=== PATIENT | male | born 1980 | race Caucasian/White ===

== ENCOUNTER 2016-07-02 08:20 | Emergency (ER) | payer OTHER ==
[2016-07-02 08:37] VITALS: O2SAT 96
[2016-07-02] MEDS ORDERED: TORAdol 30 mg Injection IM ONE (08:44)
--- NOTE | 2016-07-02 08:57 | ERPHSYRPT ---
- History of Present Illness Time Seen by Provider: 07/02/16 08:35 Source: patient Exam Limitations: clinical condition Patient Subjective Stated Complaint: pt co pain lower back since wednesday, pt was caught between boat and trailer on , has not been able to work since, has pain radiating down legs Triage Nursing Assessment: pt alert ,resp easy, skinw/d. has tried aleve at home , has contusion to uppper inner left thigh Physician History: PATIENT WITH HISTORY OF CHRONIC LOW BACK PAIN STATES HIS LEFT LOWER LEG TRAPPED BETWEEN TRAILOR AND BOAT 2 DAYS AGO, HAS INCREASED PAIN LEFT MID THIGH AND RICARDO. DENIES HEAD, NECK OR BACK INJURY. DENIES BRUISING OR SWELLING. Method of Injury: direct blow Occurred: days ago Quality: constant Severity of Pain-Max: severe Severity of Pain-Current: severe Lower Extremities Pain: leg: left, knee: left, thigh: left Modifying Factors: Improves With: movement Associated Symptoms: unable to bear weight Allergies/Adverse Reactions: No Known Drug Allergies Allergy (Verified 07/02/16 08:38) Hx Tetanus, Diphtheria Vaccination/Date Given: Yes Hx Influenza Vaccination/Date Given: Yes Hx Pneumococcal Vaccination/Date Given: No Immunizations Up to Date: Yes - Review of Systems Constitutional: No Fever, No Chills Eyes: No Symptoms Ears, Nose, & Throat: No Symptoms Respiratory: No Cough, No Dyspnea Cardiac: No Chest Pain, No Edema, No Syncope Abdominal/Gastrointestinal: No Abdominal Pain, No Nausea, No Vomiting, No Diarrhea Genitourinary Symptoms: No Dysuria Musculoskeletal: Injury, Joint Pain, Joint Swelling, No Back Pain, No Neck Pain Skin: No Rash Neurological: No Dizziness, No Focal Weakness, No Sensory Changes Psychological: No Symptoms Endocrine: No Symptoms All Other Systems: Reviewed and Negative - Past Medical History Pertinent Past Medical History: Yes Musculoskeletal History: Other History: Other Other Medical History: KIDNEY STONES,back pain - Past Surgical History Past Surgical History: No - Social History Smoking Status: Current every day smoker How long have you smoked: 10 Exposure to second hand smoke: Yes Drug Use: none Patient Lives Alone: No - Nursing Vital Signs Nursing Vital Signs: Initial Vital Signs Temperature 98.3 F Temperature Source Oral Pulse Rate 116 Respiratory Rate 16 Blood Pressure [] 136/74 Pain Intensity 4 - Physical Exam General Appearance: alert Neck Exam: supple Cardiovascular/Respiratory Exam: chest non-tender, normal breath sounds, regular rate/rhythm, no respiratory distress Gastrointestinal/Abdominal Exam: non-tender, soft, guarding Back Exam: normal inspection, No vertebral tenderness Hips Exam: bilateral: normal range of motion, other (PASSIVE RANGE OF MOTION WITHOUT HIP PAIN) Legs Exam: left leg: pain (MEDIAL ASPECT OF MID LEFT THIGH NO ECCHYMOSIS), soft tissue tenderness, bilateral leg: other (THERE IS BILATERAL VENOUS STATES CHANGES MID TO LOWER RICARDO BROWNISH DISCOLORATION, ON THE LEFT ERYTHEMA WITH WARMTH) Knees Exam: left knee: other (LIMITED RANGE OF MOTION, PATELLA MIDLINE, NO JOINT LAXITY UPON VARUS/VALGUS STRESS, NEGATIVE ANTERIOR DRAW SIGN) Ankle Exam: left ankle: other (LEFT PEDIS PULSE 2+), bilateral ankle: non-tender , normal inspection Neuro/Tendon Exam: normal sensation, normal motor functions Mental Status Exam: alert, oriented x 3, cooperative Skin Exam: normal color, warm, dry SpO2: 96 Oxygen Delivery: Room Air - Radiology Exams Pelvis X-ray Interpretation: Discussed w/ radiologist, Negative, No Fracture Left Femur X-ray Interpretation: Discussed w/ radiologist, No Fracture Left Lower Leg X-ray Interpretation: Discussed w/ radiologist, No Fracture - Radiology Ultrasound Exam Left Venous Lower Extremity Ultrasound: discussed w/radiologist (NO EVIDENCE OF DVT) Ordered Tests: Active Orders 24 hr Category Date Time Status Crutches STAT Care 07/02/16 09:16 Active FEMUR Stat Exams 07/02/16 08:43 Completed KNEE (1 OR 2 VIEW) Stat Exams 07/02/16 08:44 Completed LOWER LEG Stat Exams 07/02/16 08:43 Completed PELVIS (1 OR 2 VIEWS) Stat Exams 07/02/16 08:42 Completed VENOUS UNILAT/LIMITED EXTREMIT [US] Stat Exams 07/02/16 10:37 Ordered UA Stat Lab 07/02/16 08:42 Ordered Urine Triage Profile Stat Lab 07/02/16 08:42 Ordered Medication Summary Discontinued Medications Generic Name Dose Route Start Last Admin Trade Name Freq PRN Reason Stop Dose Admin Hydromorphone HCl 2 mg 07/02/16 09:29 07/02/16 09:51 Dilaudid 2 Mg Injection IM 07/02/16 09:30 2 mg STAT STA Administration Hydromorphone HCl Confirm 07/02/16 09:49 Hydromorphone 1 Mg/Ml Ampule Administered 07/02/16 09:50 Dose 2 mg .ROUTE .STK-MED ONE Ketorolac Tromethamine 60 mg 07/02/16 08:44 07/02/16 09:02 Toradol 30 Mg Injection IM 07/02/16 08:45 60 mg STAT ONE Administration Ketorolac Tromethamine Confirm 07/02/16 09:01 Toradol 30 Mg Injection Administered 07/02/16 09:02 Dose 60 mg .ROUTE .STK-MED ONE Promethazine HCl 25 mg 07/02/16 09:29 07/02/16 09:51 Phenergan 25 Mg Inj IM 07/02/16 09:30 25 mg STAT ONE Administration Promethazine HCl Confirm 07/02/16 09:49 Phenergan 25 Mg Inj Administered 07/02/16 09:50 Dose 25 mg .ROUTE .STK-MED ONE - Progress Progress: improved Progress Note: 07/02/16 10:29 PATIENT GIVEN TORADOL 60MG IM, DILAUDID 2MG/PHENERGAN 25MG IM 07/02/16 10:30-PATIENT FITTED FOR CRUTCHES Counseled pt/family regarding: diagnosis, need for follow-up, rad results - Departure Time of Disposition: 11:03 Departure Disposition: Home Clinical Impression: SOFT TISSUE INJURIES LEFT THIGH/RICARDO, CONTUSION/STRAIN LEFT KNEE, CELLULITIS LEFT LEG Condition: Stable Critical Care Time: No Referrals: DOCTOR,NO FAMILY [Primary Care Provider] - Additional Instructions: AMBULATE USING CRUTCHES, NONWEIGHT BEARING LEFT LEG FOR 1 WEEK. ANTIBIOTIC AUGMENTIN 875MG TWICE DAILY FOR 10 DAYS. WATCH FOR SIGNS OF INFECTION, REDNESS, SWELLING OR DRAINAGE. NORCO 10/325 EVERY 4 HOURS FOR PAIN NEEDED. FOLLOWUP WITH FAMILY PHYSICIAN IN 1 WEEK. Prescriptions: Hydrocodone/APAP 10/325 mg [[place] 10/325 MG Tablet] 1 tab PO Q4H PRN PRN # 20 tablet PRN Reason: Pain Amox Tr/Potass Clav. 875 mg [Augmentin 875-125 Tablet] 875 mg PO BID #20 tablet
[2016-07-02] MEDS ORDERED: TORAdol 30 mg Injection ONE (09:01)
[2016-07-02] MEDS ORDERED: DILAUDID 2 MG INJECTION IM STA (09:29)
[2016-07-02] MEDS ORDERED: Phenergan 25 MG INJ IM ONE (09:29)
[2016-07-02] MEDS ORDERED: Hydromorphone 1 mg/ml Ampule ONE (09:49)
[2016-07-02] MEDS ORDERED: Phenergan 25 MG INJ ONE (09:49)
--- NOTE | 2016-07-02 10:17 | XRAY ---
Indication: Pain following injury. Comparison: None AP pelvis demonstrates right intertrochanteric bone cyst and left pelvic phlebolith. No other bony, articular, or soft tissue abnormalities.
--- NOTE | 2016-07-02 10:17 | XRAY ---
Indication: Pain following injury. Comparison: None 2 views of the left femur obtained. No bony, articular, or soft tissue abnormalities.
--- NOTE | 2016-07-02 10:17 | XRAY ---
Indication: Pain following injury. Comparison: None 2 views of the left lower leg obtained. No bony, articular, or soft tissue abnormalities.
--- NOTE | 2016-07-02 10:20 | XRAY ---
Indication: Pain following injury. Comparison: None 2 views of the left knee obtained. No bony, articular, or soft tissue abnormalities.
[2016-07-02 11:15] VITALS: BP 121/59; PULSE 78
--- NOTE | 2016-07-02 11:21 | XRAY ---
Indication: Pain following injury. Two-dimensional sonogram and color Doppler imaging of the major venous vessels of the left leg was performed. Comparison: None No thrombus seen in the examined deep venous vessels of the left leg including greater saphenous vein. Veins demonstrate normal compressibility. Venous waveforms are normal with and without augmentation. Incidental small benign appearing inguinal lymph nodes. Impression: Left leg negative for DVT.
== END 2016-07-02 11:15 | disposition home or self-care (01) ==
LOC: ED 08:20
DX: S79.922A Unspecified injury of left thigh, initial encounter (principal); S89.92XA Unspecified injury of left lower leg, initial encounter; S80.02XA Contusion of left knee, initial encounter; L03.116 Cellulitis of left lower limb; M54.5 Low back pain; W23.0XXA Caught, crushed, jammed, or pinched between moving objects, initial encounter
CPT/HCPCS: 72170; 73552; 73560; 73590; 93971; 96372; 99284; J1170; J1885; J2550

== ENCOUNTER 2016-07-06 11:43 | Observation (INO) | payer OTHER ==
[2016-07-06 12:31] LABS: Mean Cell Volume 86.9 fl (78-100); Mean Corpuscular Hemoglobin 30.3 pg (26-32); Mean Platelet Volume 9.9 fl (6-9.5); Platelet Count 248 K/mm3 (150-450); Red Blood Count 4.82 M/mm3 (4.1-5.6); Red Cell Distribution Width 12.5 % (11.5-14.0); White Blood Count 15.2 K/mm3 (4.0-10.5)
[2016-07-06] MEDS: ENOXAPARIN SODIUM SQ SCH (12:55)
[2016-07-06] MEDS: Sodium Chloride 0.9% 1000 ML 1,000 ML IV SCH (12:55)
[2016-07-06] MEDS: DILAUDID 2 MG INJECTION IV PRN ×3 (12:58→21:13)
[2016-07-06] MEDS ORDERED: VANCOCIN 1 GM VIAL*** 2 GM in Sodium Chloride 0.9% 500 ML 500 ML IV ONE (13:00)
[2016-07-06 13:12] LABS: ALKALINE PHOSPHATASE 114 U/L (46-116); BILIRUBIN,TOTAL 0.4 mg/dL (0.2-1.0); BLOOD UREA NITROGEN 16 mg/dL (9-20); CHLORIDE 101 mEq/L (98-107); Carbon Dioxide 30.9 mEq/L (21-32); Glucose 97 MG/DL (70-110); Potassium 3.9 mEq/L (3.5-5.1); SGOT/AST 18 U/L (15-37); SGPT/ALT 34 U/L (12-78); SODIUM 140 mEq/L (136-145); Total Protein 7.5 gm/dL (6.4-8.2)
[2016-07-06 14:06] LABS: BAND 6 % (0.0-2.0); Total Cells Counted 100
[2016-07-06 14:07] LABS: Platelet Estimate NORMAL (NORMAL)
[2016-07-06 14:09] LABS: Toxic Granulation 2+
[2016-07-06 14:11] LABS: Polychromasia 1+
[2016-07-06] MEDS: Nicoderm CQ 21 MG TOP SCH (18:19)
--- NOTE | 2016-07-06 20:30 | XRAY ---
Exam: Duplex Doppler venous ultrasound examination of the left lower extremity from 07/06/2016. Comparison: Duplex Doppler venous ultrasound examination of the left lower extremity from 07/02/2016. Indication: Cellulitis, left leg pain. Findings: Doppler examination of the left lower extremity was carried out in the usual manner. Normal transducer compression, Doppler signal with Doppler augmentation, and color flow were seen within front office representative segments of the left common femoral vein, superficial femoral vein, popliteal vein, and distal posterior tibial veins. There was also normal compression, color flow, and Doppler signal within the greater saphenous vein within the proximal left thigh and normal color flow and Doppler signal with augmentation within the profunda femoral vein. One or two superficial lymph nodes measuring under 1 cm in diameter are seen anterior to the proximal left superficial femoral vein. There appears to be some subcutaneous edema within the distal left lower leg. Impression: 1. No Doppler or sonographic evidence of deep venous thrombosis is seen within the left lower extremity. This is unchanged from 07/02/2016. 2. There appears to be some subcutaneous edema within the distal left lower leg. One or two small superficial lymph nodes are seen anterior to the proximal left superficial femoral vein as well.
[2016-07-06] MEDS: VANCOCIN 1 GM VIAL*** 1.25 GM in Sodium Chloride 0.9% 250 ML 250 ML IV SCH (21:17)
[2016-07-07] MEDS: DILAUDID 2 MG INJECTION IV PRN ×8 (02:15→21:06)
[2016-07-07] MEDS: VANCOCIN 1 GM VIAL*** 1.25 GM in Sodium Chloride 0.9% 250 ML 250 ML IV SCH ×3 (05:31→21:02)
--- NOTE | 2016-07-07 09:40 | PCM.NOTE ---
Date and Time: 07/07/16 0939 Subjective Assessment: patient reports numbness in leg has resolved, dramatic improvement in redness, swelling and pain. he is quite pleased Objective Exam General Appearance: no apparent distress, alert Respiratory Exam: normal breath sounds, lungs clear, No respiratory distress Cardiovascular Exam: regular rate/rhythm, normal heart sounds Gastrointestinal/Abdomen Exam: soft, No tenderness, No mass Extremity Exam: other (left lower leg with improving erythema, warmth to touch, lymphangitic spread to medial upper thigh improving. much less tender to palpation) OBJECTIVE DATA Vital Signs: Vital Signs - 24 hr Temp Pulse Resp BP Pulse Ox 07/07/16 07:24 97.5 F 85 20 134/79 96 07/07/16 04:00 97.4 F 86 19 118/73 95 07/07/16 00:00 97.7 F 89 19 121/70 96 07/06/16 19:30 97.5 F 92 H 19 126/73 96 07/06/16 16:00 98.0 F 87 18 136/78 97 07/06/16 11:58 98.6 F 93 H 125/75 07/06/16 11:43 98.6 F 93 H 18 125/75 97 Pain Assessment - Last Documented Pain Intensity 9 Pain Scale Used 0-10 Pain Scale Intake and Output: Intake & Output 07/04/16 07/05/16 07/06/16 07/07/16 11:59 11:59 11:59 11:59 Intake Total 1561 Balance 1561 Weight 110.631 kg Lab Results: Lab Results-Last 24 Hours 07/06/16 07/06/16 Range/Units 12:14 12:14 WBC 15.2 H (4.0-10.5) K/mm3 RBC 4.82 (4.1-5.6) M/mm3 Hgb 14.6 (12.5-18.0) gm/dl Hct 41.9 L (42-50) % MCV 86.9 (78-100) fl MCH 30.3 (26-32) pg MCHC 34.8 (32-36) g/dl RDW 12.5 (11.5-14.0) % Plt Count 248 (150-450) K/mm3 MPV 9.9 H (6-9.5) fl Segmented Neutrophils 84 H (36.-66.) % Band Neutrophils 6 H (0.0-2.0) % Lymphocytes (Manual) 6 L (24-44) % Monocytes (Manual) 4 (0.0-12.0) % Differential Comment NORMAL Toxic Granulation 2+ Platelet Estimate NORMAL (NORMAL) Polychromasia 1+ Sodium 140 (136-145) mEq/L Potassium 3.9 (3.5-5.1) mEq/L Chloride 101 (98-107) mEq/L Carbon Dioxide 30.9 (21-32) mEq/L Anion Gap 12.0 (5-15) MEQ/L BUN 16 (9-20) mg/dL Creatinine 0.98 (0.55-1.30) mg/dl Estimated GFR > 60 ML/MIN Glucose 97 (70-110) MG/DL Calcium 9.3 (8.5-10.1) mg/dL Total Bilirubin 0.4 (0.2-1.0) mg/dL AST 18 (15-37) U/L ALT 34 (12-78) U/L Alkaline Phosphatase 114 (46-116) U/L Serum Total Protein 7.5 (6.4-8.2) gm/dL Albumin 3.0 L (3.4-5.0) g/dL Radiology Exams: Radiology Procedures Category Date Time Status VENOUS UNILAT/LIMITED EXTREMIT [US] Routine Exams 07/06/16 12:30 Completed Assessment/Plan (1) Cellulitis of left leg Current Visit: Yes Status: Acute Assessment & Plan: continue vanc, dramatic improvement. failed outpatient therapy with augmentin from ER. Code(s): L03.116 - CELLULITIS OF LEFT LOWER LIMB
[2016-07-07] MEDS: ENOXAPARIN SODIUM SQ SCH (09:45)
[2016-07-07] MEDS: Zofran 4 MG/2 ML VIAL IV PRN ×2 (09:51→14:27)
[2016-07-07] MEDS: Sodium Chloride 0.9% 1000 ML 1,000 ML IV SCH (17:16)
[2016-07-07] MEDS: Nicoderm CQ 21 MG TOP SCH (18:20)
[2016-07-08] MEDS: DILAUDID 2 MG INJECTION IV PRN ×2 (03:58→08:33)
[2016-07-08] MEDS: VANCOCIN 1 GM VIAL*** 1.25 GM in Sodium Chloride 0.9% 250 ML 250 ML IV SCH (05:35)
[2016-07-08 07:19] VITALS: BP 141/80; PULSE 76; O2SAT 100
[2016-07-08] MEDS: ENOXAPARIN SODIUM SQ SCH (08:33)
[2016-07-08] MEDS: Zofran 4 MG/2 ML VIAL IV PRN (08:33)
--- NOTE | 2016-07-08 08:58 | PCM.DS ---
Discharge Summary Date of Admission: 07/06/16 11:43 Admitting Physician: YAHIR JESUS Primary Care Provider: AMY MARTINEZ Allergies Allergies No Known Drug Allergies Allergy (Verified 07/06/16 12:04) Hospital Summary - Hospital Course Hospital Course: patient was admitted with cellulitis left leg, had negative doppler. had lymphangitic spread to medial upper thigh. has improved dramatically since admission and is ready to discharge, will need to continue IV vanc as he had failed po outpatient augmentin prior to admission - Vitals & Intake/Output Vital Signs: Vital Signs Temperature 97.8 F 07/08/16 07:18 Pulse Rate 76 07/08/16 07:18 Respiratory Rate 20 07/08/16 07:18 Blood Pressure 141/80 07/08/16 07:18 O2 Sat by Pulse Oximetry 100 07/08/16 07:18 Intake & Output: Intake & Output 07/05/16 07/06/16 07/07/16 07/08/16 11:59 11:59 11:59 11:59 Intake Total 1561 2145 Balance 1561 2145 Weight 110.631 kg - Lab Result Diagrams: 07/06/16 12:14 07/06/16 12:14 Lab Results-Last 24 Hrs: Lab Results-Last 24 Hours 07/08/16 Range/Units 05:25 Vancomycin Trough 11.9 (10-20) UG/ML Micro Results-Entire Visit: Microbiology 07/06/16 13:20 Blood Culture - Preliminary Blood NO GROWTH TO DATE 07/06/16 12:14 Blood Culture - Preliminary Blood NO GROWTH TO DATE - Radiology Exams Ordered Rad Exams-Entire Visit: Radiology Procedures Category Date Time Status VENOUS UNILAT/LIMITED EXTREMIT [US] Routine Exams 07/06/16 12:30 Completed - Procedures and Test Procedures and Tests throughout Hospitalization: Therapy Orders & Screens 07/06/16 12:26 OT Screen per Nursing Assess Comment: Protocol Order Physician Instructions: Greater than 3 points order OT Admission Screening Reason For Exam: Triggered on Admission Diagnosis: Cellulitis left leg Open Wound/Cellutlitis/Pressure Ulcers: Yes Acute Fx/ORIF/Change in wt bearing status: No Severe MUSCULOSKELETAL pain: No ADL Dysfunction: No Acute CVA w/Hemiparesis/Hemiplegia: No Decreased Functional Mobility/Strength: No Sprain/Strain: No Acute Post-op Mobility Dysfunction: No Total Points: 5 PT Screen per Nursing Assess ONCE Comment: Protocol Order Physician Instructions: Greater than 3 points order PT Admission Screenin Reason For Exam: Triggered on Admission Diagnosis: Cellulitis left leg Open Wound/Cellutlitis/Pressure Ulcers: Yes Acute Fx/ORIF/Change in wt bearing status: No Severe MUSCULOSKELETAL pain: No ADL Dysfunction: No Acute CVA w/Hemiparesis/Hemiplegia: No Decreased Functional Mobility/Strength: No Sprain/Strain: No Acute Post-op Mobility Dysfunction: No Total Points: 5 Discharge Exam General Appearance: no apparent distress, alert Respiratory Exam: normal breath sounds, lungs clear, No respiratory distress Cardiovascular Exam: regular rate/rhythm, normal heart sounds Gastrointestinal/Abdomen Exam: soft, No tenderness, No mass Extremity Exam: other (left lower leg with erythema and mild warmth, firmness to medial left upper thigh and induration. no fluctuance) Final Diagnosis/Problem List - Final Discharge Diagnosis/Problem (1) Cellulitis of left leg Current Visit: Yes Status: Acute Assessment & Plan: has improved dramatically on IV vanc, patient is willing to come get infusions as outpatient through Wednesday then to see me in the office - Discharge Disposition: Home, Self-Care Condition: Stable Prescriptions: Continue Hydrocodone/APAP 10/325 mg [[place] 10/325 MG Tablet] 1 tab PO Q4H PRN PRN #20 tablet PRN Reason: Pain Discontinued Amox Tr/Potass Clav. 875 mg [Augmentin 875-125 Tablet] 875 mg PO BID # 20 tablet Additional Instructions: pharmacy to dose IV vanc through 07/13/16, patient to followup with me on that day to decide if any further tx required. Follow up with: YAHIR JESUS MD [ACTIVE STAFF] - 07/13/16 10:45 am
== END 2016-07-08 10:15 | disposition home or self-care (01) ==
LOC: MED SURG 11:43
PROVIDERS: ADMIT Family Medicine; ATTEND Family Medicine
DX: L03.116 Cellulitis of left lower limb (principal); M79.662 Pain in left lower leg
CPT/HCPCS: 36415; 80053; 80202; 85025; 87040; 93971; G0378; J1170; J1650; J2405; J3370; A9270-GY

== ENCOUNTER 2022-06-09 19:37 | Observation (INO) | payer BC, MEDICAID ==
[2022-06-09 19:58] LABS: Absolute Neutrophil Ct (ANC) 4.41 x10^3/uL (1.4-6.9); BASOPHIL % 0.6 % (0.0-0.4); Basophil (Absolute #) 0.05 x10^3/uL (0-0.4); Eosinophil (Absolute #) 0.08 x10^3/uL (0-0.5); Hematocrit 46.1 % (42-50); Hemoglobin 16.1 g/dL (12.5-18.0); IMMATURE GRAN # 0.05 x10^3u/L (0.00-0.03); IMMATURE GRAN % 0.6 % (0.00-0.4); Lymphocyte (Absolute #) 2.85 x10^3/uL (1.0-4.6); Lymphocytes % 35.1 % (24.0-44.0); Mean Corpuscular Hemoglobin 30.7 pg (26-32); Mean Corpuscular Hgb Concent. 34.9 g/dL (32-36); Mean Platelet Volume 9.6 fL (7.5-11.0); Monocyte (Absolute #) 0.67 x10^3/uL (0.0-1.3); Monocytes % 8.3 % (0.0-12.0); Neutrophil % 54.4 % (36.0-66.0); Platelet Count 225 x10^3/uL (150-450); Red Blood Count 5.24 x10^6/uL (4.1-5.6); Red Cell Distribution Width 12.5 % (11.5-14.0); White Blood Count 8.1 x10^3/uL (4.0-10.5)
[2022-06-09 20:18] LABS: ALBUMIN 5.1 g/dL (3.5-5.0); ALKALINE PHOSPHATASE 102 U/L (38-126); ANION GAP 18.9 MEQ/L (5-15); BLOOD UREA NITROGEN 20 mg/dL (9-20); CHLORIDE 105 mmol/L (98-107); Calcium 10.2 mg/dL (8.4-10.2); Carbon Dioxide 26 mmol/L (22-30); EST GLOMERULAR FILTRATION RATE > 60.0 ML/MIN; Glucose 90 mg/dL (74-106); Potassium 3.5 mmol/L (3.5-5.1); SGOT/AST 47 U/L (17-59); SGPT/ALT 81 U/L (0-50); SODIUM 146 mmol/L (137-145); Total Protein 8.2 g/dL (6.3-8.2)
[2022-06-09 21:28] LABS: Appearance Clear (Clear); Bacteria None Seen /HPF (None Seen); Bilirubin Negative (Negative); Blood Negative (Negative); Epithelial Cells None Seen /HPF (None Seen); Glucose, Urine Negative (Negative); Hyaline Casts NONE SEEN /LPF (0-2); Ketones Negative (Negative); Leukocyte Esterase Negative (Negative); Nitrite Negative (Negative); Protein,Urine Dip Negative (Negative); RBC 0-2 /HPF (0-5); Specific Gravity 1.025 (1.005-1.030); WBC 0-2 /HPF (0-5)
[2022-06-09 21:34] LABS: ADD URINE CULTURE? NO (NO)
--- NOTE | 2022-06-09 22:38 | ERPHSYRPT ---
- History of Present Illness Time Seen by Provider: 06/09/22 19:41 Source: patient Exam Limitations: no limitations Patient Subjective Stated Complaint: Pt reports "approximately 20 minutes ago my left side of my face stopped working (1919)." Triage Nursing Assessment: Pt alert and oriented x3. No apparent respiratory distress. Ambulated with slow steady cot to wheelchair in lobby. Diaphoretic/skin warm/face flushed. Left sided facial droop, reported numbness by pt. Strong restaurant culinary manager right hand, weak restaurant culinary manager left hand. Decreased sensation left hand and left leg. Decreased ROM left upper and lower extremity. Physician History: Patient is a 41-year-old male presents to our ED for evaluation of acute onset left-sided facial weakness left upper and lower extremity weakness accompanied by decreased sensation. Symptoms started approximately 20 minutes prior to arrival. Patient complains of a slight headache. No obvious expressive aphasia. We are concerned for possible stroke. Patient denies a history of the same. Symptoms are moderate severity. No specific worsening or improving factors. Patient voices no other complaints or concerns at this time. Portions of this note were created with voice recognition technology. There may be grammatical, spelling, punctuation or sound alike errors Timing/Duration: today Severity: moderate Modifying Factors: Improves With: nothing Associated Symptoms: denies symptoms Allergies/Adverse Reactions: No Known Drug Allergies Allergy (Verified 06/09/22 19:39) Home Medications: Diclofenac Sodium 1 tab PO BID 06/09/22 [History] Hx Tetanus, Diphtheria Vaccination/Date Given: Yes Hx Influenza Vaccination/Date Given: No Hx Pneumococcal Vaccination/Date Given: No Travel Risk - International Travel Have you traveled outside of the country in past 3 weeks: No - Coronavirus Screening Are you exhibiting any of the following symptoms?: No Close contact with a COVID-19 positive Pt in past 14-21 Days: No - Vaccine Status Have you recieved a Covid-19 vaccination: No - Review of Systems Constitutional: No Symptoms, No Fever, No Chills Eyes: No Symptoms Ears, Nose, & Throat: No Symptoms Respiratory: No Symptoms, No Cough, No Dyspnea Cardiac: No Symptoms, No Chest Pain, No Edema, No Syncope Abdominal/Gastrointestinal: No Symptoms, No Abdominal Pain, No Nausea, No Vomiting, No Diarrhea Genitourinary Symptoms: No Symptoms, No Dysuria Musculoskeletal: No Symptoms, No Back Pain, No Neck Pain Skin: No Symptoms, No Rash Neurological: No Symptoms, No Dizziness, No Focal Weakness, No Sensory Changes Psychological: No Symptoms Endocrine: No Symptoms Hematologic/Lymphatic: No Symptoms Immunological/Allergic: No Symptoms All Other Systems: Reviewed and Negative - Past Medical History Pertinent Past Medical History: Yes Neurological History: No Pertinent History ENT History: No Pertinent History Cardiac History: Hypertension Respiratory History: No Pertinent History Endocrine Medical History: No Pertinent History Musculoskeletal History: Other GI Medical History: No Pertinent History History: Other Psycho-Social History: No Pertinent History Male Reproductive Disorders: No Pertinent History Other Medical History: KIDNEY STONES, chronic back pain, RA, cellulitis L leg - Past Surgical History Past Surgical History: No Neuro Surgical History: No Pertinent History Cardiac: No Pertinent History Respiratory: No Pertinent History Gastrointestinal: No Pertinent History Genitourinary: No Pertinent History Musculoskeletal: No Pertinent History Male Surgical History: No Pertinent History - Social History Smoking Status: Former smoker How long have you smoked: 15yrs Exposure to second hand smoke: No Drug Use: marijuana Patient Lives Alone: No - Nursing Vital Signs Nursing Vital Signs: Initial Vital Signs Temperature 98.4 F 06/09/22 19:40 Pulse Rate 97 H 06/09/22 19:40 Respiratory Rate 12 06/09/22 19:40 Blood Pressure 154/106 06/09/22 19:40 O2 Sat by Pulse Oximetry 97 06/09/22 19:40 Pain Scale Pain Intensity 3 - Physical Exam General Appearance: no apparent distress, alert Eye Exam: PERRL/EOMI, eyes nml inspection Ears, Nose, Throat Exam: normal ENT inspection, TMs normal, pharynx normal, moist mucous membranes Neck Exam: normal inspection, non-tender, supple, full range of motion Respiratory Exam: normal breath sounds, lungs clear, airway intact, No respiratory distress Cardiovascular Exam: regular rate/rhythm, normal heart sounds, normal peripheral pulses Gastrointestinal/Abdomen Exam: soft, normal bowel sounds, No tenderness, No mass Back Exam: normal inspection, normal range of motion, No CVA tenderness, No vertebral tenderness Extremity Exam: normal inspection, normal range of motion, pelvis stable Neurologic Exam: alert, oriented x 3, cooperative, normal mood/affect, sensation nml, motor deficits, other (Weakness of left upper lower extremity. Left-sided facial droop.) Skin Exam: normal color, warm, dry, No rash Lymphatic Exam: No adenopathy SpO2 Interpretation: normal SpO2: 97 O2 Delivery: Room Air - Course Nursing assessment & vital signs reviewed: Yes EKG Interpreted by Me: RATE (95), Sinus Rhythm, NORMAL AXIS, NORMAL INTERVALS - CT Exams Soft Tissue Neck CT Interpretation: Tele-radiologist Report (No comps normal CTA neck) Head CT Interpretation: Tele-radiologist Report (No comps normal CTA head) Other CT Interpretation: Tele-radiologist Report (Pansinusitis normal head CT scan) Ordered Tests: Active Orders 24 hr Category Date Time Status Perch Mender STAT Care 06/09/22 19:39 Active EKG-ER Only STAT Care 06/09/22 19:38 Active IV Insertion STAT Care 06/09/22 19:38 Active Pulse Oximetry (ED) STAT Care 06/09/22 19:[address] ANGIOGRAPHY NECK [CT] Stat Exams 06/09/22 20:21 Taken CTA HEAD W AND/OR WO CONTRAST [CT] Stat Exams 06/09/22 20:20 Taken HEAD WITHOUT CONTRAST [CT] Stat Exams 06/09/22 19:37 Taken CBC W DIFF Stat Lab 06/09/22 19:56 Completed CMP Stat Lab 06/09/22 19:56 Completed TROPONIN Q4H Lab 06/09/22 19:56 Completed TROPONIN Q4H Lab 06/09/22 23:15 Completed TROPONIN Q4H Lab 06/10/22 03:45 Ordered UA W/RFX UR CULTURE Stat Lab 06/09/22 21:16 Completed Medication Summary Generic Name Dose Route Start Last Admin Trade Name Freq PRN Reason Stop Dose Admin Sodium Chloride 1,000 mls @ 75 mls/hr 06/09/22 23:15 06/10/22 00:40 Sodium Chloride 0.9% 1000 Ml IV 07/09/22 23:14 75 mls/hr .[id number] LIZZY Administration Discontinued Medications Generic Name Dose Route Start Last Admin Trade Name Freq PRN Reason Stop Dose Admin Aspirin 324 mg 06/09/22 23:06 06/10/22 00:40 Aspirin 81 Mg Tab.Chew PO 06/09/22 23:07 324 mg STAT ONE Administration Aspirin Confirm 06/10/22 00:38 Aspirin 81 Mg Tab.Chew Administered 06/10/22 00:39 Dose 324 mg .ROUTE .STK-MED ONE Lab/Rad Data: Laboratory Result Diagrams 06/09/22 19:56 06/09/22 19:56 Laboratory Results 06/09/22 06/09/22 06/09/22 Range/Units 23:15 23:15 21:16 WBC (4.0-10.5) x10^3/uL RBC (4.1-5.6) x10^6/uL Hgb (12.5-18.0) g/dL Hct (42-50) % MCV (78-100) fL MCH (26-32) pg MCHC (32-36) g/dL RDW (11.5-14.0) % Plt Count (150-450) x10^3/uL MPV (7.5-11.0) fL Gran % (36.0-66.0) % Immature Gran % (Auto) (0.00-0.4) % Nucleat RBC Rel Count (0.00-0.1) % Eos # (Auto) (0-0.5) x10^3/uL Immature Gran # (Auto) (0.00-0.03) x10^3u/L Absolute Lymphs (auto) (1.0-4.6) x10^3/uL Absolute Monos (auto) (0.0-1.3) x10^3/uL Absolute Nucleated RBC (0.00-0.01) x10^3u/L Lymphocytes % (24.0-44.0) % Monocytes % (0.0-12.0) % Eosinophils % (0.00-5.0) % Basophils % (0.0-0.4) % Absolute Granulocytes (1.4-6.9) x10^3/uL Basophils # (0-0.4) x10^3/uL Sodium (137-145) mmol/L Potassium (3.5-5.1) mmol/L Chloride (98-107) mmol/L Carbon Dioxide (22-30) mmol/L Anion Gap (5-15) MEQ/L BUN (9-20) mg/dL Creatinine (0.66-1.25) mg/dL Estimated GFR ML/MIN Glucose (74-106) mg/dL Calcium (8.4-10.2) mg/dL Total Bilirubin (0.2-1.3) mg/dL AST (17-59) U/L ALT (0-50) U/L Alkaline Phosphatase (38-126) U/L Troponin I < 0.012 (0.000-0.034) ng/mL Serum Total Protein (6.3-8.2) g/dL Albumin (3.5-5.0) g/dL Urine Color Yellow (Yellow) Urine Appearance Clear (Clear) Urine pH 6.0 (4.6-8.0) Ur Specific Lula 1.025 (1.005-1.030) Urine Protein Negative (Negative) Urine Glucose (UA) Negative (Negative) mg/dL Urine Ketones Negative (Negative) Urine Blood Negative (Negative) Urine Nitrite Negative (Negative) Urine Bilirubin Negative (Negative) Urine Urobilinogen 1.0 A (0.2) mg/dL Ur Leukocyte Esterase Negative (Negative) U Hyaline Cast (Auto) NONE SEEN (0-2) /LPF Urine Microscopic RBC 0-2 (0-5) /HPF Urine Microscopic WBC 0-2 (0-5) /HPF Ur Epithelial Cells None Seen (None Seen) /HPF Urine Bacteria None Seen (None Seen) /HPF Urine Culture Reflexed NO (NO) Influenza Type A Ag NEGATIVE (NEGATIVE) Influenza Type B Ag NEGATIVE (NEGATIVE) RSV (PCR) NEGATIVE (NEGATIVE) SARS-CoV-2 (PCR) NEGATIVE (NEGATIVE) 06/09/22 06/09/22 06/09/22 Range/Units 19:56 19:56 19:56 WBC 8.1 (4.0-10.5) x10^3/uL RBC 5.24 (4.1-5.6) x10^6/uL Hgb 16.1 (12.5-18.0) g/dL Hct 46.1 (42-50) % MCV 88.0 (78-100) fL MCH 30.7 (26-32) pg MCHC 34.9 (32-36) g/dL RDW 12.5 (11.5-14.0) % Plt Count 225 (150-450) x10^3/uL MPV 9.6 (7.5-11.0) fL Gran % 54.4 (36.0-66.0) % Immature Gran % (Auto) 0.6 H (0.00-0.4) % Nucleat RBC Rel Count 0.0 (0.00-0.1) % Eos # (Auto) 0.08 (0-0.5) x10^3/uL Immature Gran # (Auto) 0.05 H (0.00-0.03) x10^3u/L Absolute Lymphs (auto) 2.85 (1.0-4.6) x10^3/uL Absolute Monos (auto) 0.67 (0.0-1.3) x10^3/uL Absolute Nucleated RBC 0.00 (0.00-0.01) x10^3u/L Lymphocytes % 35.1 (24.0-44.0) % Monocytes % 8.3 (0.0-12.0) % Eosinophils % 1.0 (0.00-5.0) % Basophils % 0.6 (0.0-0.4) % Absolute Granulocytes 4.41 (1.4-6.9) x10^3/uL Basophils # 0.05 (0-0.4) x10^3/uL Sodium 146 H (137-145) mmol/L Potassium 3.5 (3.5-5.1) mmol/L Chloride 105 (98-107) mmol/L Carbon Dioxide 26 (22-30) mmol/L Anion Gap 18.9 H (5-15) MEQ/L BUN 20 (9-20) mg/dL Creatinine 1.00 (0.66-1.25) mg/dL Estimated GFR > 60.0 ML/MIN Glucose 90 (74-106) mg/dL Calcium 10.2 (8.4-10.2) mg/dL Total Bilirubin 0.50 (0.2-1.3) mg/dL AST 47 (17-59) U/L ALT 81 H (0-50) U/L Alkaline Phosphatase 102 (38-126) U/L Troponin I < 0.012 (0.000-0.034) ng/mL Serum Total Protein 8.2 (6.3-8.2) g/dL Albumin 5.1 H (3.5-5.0) g/dL Urine Color (Yellow) Urine Appearance (Clear) Urine pH (4.6-8.0) Ur Specific Lula (1.005-1.030) Urine Protein (Negative) Urine Glucose (UA) (Negative) mg/dL Urine Ketones (Negative) Urine Blood (Negative) Urine Nitrite (Negative) Urine Bilirubin (Negative) Urine Urobilinogen (0.2) mg/dL Ur Leukocyte Esterase (Negative) U Hyaline Cast (Auto) (0-2) /LPF Urine Microscopic RBC (0-5) /HPF Urine Microscopic WBC (0-5) /HPF Ur Epithelial Cells (None Seen) /HPF Urine Bacteria (None Seen) /HPF Urine Culture Reflexed (NO) Influenza Type A Ag (NEGATIVE) Influenza Type B Ag (NEGATIVE) RSV (PCR) (NEGATIVE) SARS-CoV-2 (PCR) (NEGATIVE) - Progress Progress: improved Progress Note: CT head negative. Telemetry neuro consult completed. Evaluation performed. Telemetry neuro advised tPA. Patient refused. Patient did not accept the risks of bleed or complications due to tPA. Telemetry neuro advised CTA head and nec k. CTA head neck showed no significant 06/10/22 01:15 - Departure Clinical Impression: CVA (cerebral vascular accident), Hypernatremia Condition: Stable Critical Care Time: No Referrals: REBEKAH JOSE MD [Primary Care Provider] - Follow up/PCP as directed
[2022-06-09] MEDS ORDERED: BABY ASPIRIN 81 MG CHEW PO ONE (23:06)
[2022-06-09] MEDS ORDERED: Sodium Chloride 0.9% 1000 ML 1,000 ML IV SCH (23:15)
[2022-06-09 23:54] LABS: INFLUENZA A NEGATIVE (NEGATIVE); INFLUENZA B NEGATIVE (NEGATIVE); RESPIRATORY SYNCTIAL VIRUS NEGATIVE (NEGATIVE); SARS-CoV-2 Xpert Express NEGATIVE (NEGATIVE)
[2022-06-10] MEDS ORDERED: BABY ASPIRIN 81 MG CHEW ONE (00:38)
[2022-06-10] MEDS ORDERED: TYLENOL 325 MG PO PRN (01:15)
[2022-06-10] MEDS ORDERED: MILK OF MAGNESIA 30 ML PO PRN (01:15)
[2022-06-10] MEDS ORDERED: MAALOX ES 30 ML UNIT DOSE PO PRN (01:15)
[2022-06-10] MEDS ORDERED: Senokot-S Tablet PO PRN (01:15)
[2022-06-10 05:48] LABS: Risk Ratio 6.7
--- NOTE | 2022-06-10 08:41 | XRAY ---
Indication: Left-sided numbness. Stroke. Multiple contiguous axial images obtained through the head without contrast. Comparison: None Normal appearing brain proximal, ventricles, and bony calvarium for patient's age. New complete opacification both maxillary sinuses with fluid leveling. Lesser mild mucosal thickening both ethmoid/sphenoid sinuses with fluid leveling. Impression: Pansinusitis. Remaining CT head without contrast exam is normal.
--- NOTE | 2022-06-10 08:45 | XRAY ---
Indication: Left-sided numbness. Stroke. Conventional contrast enhanced CTA neck performed using 100 cc Isovue 370 contrast. 2-D sagittal and coronal reformatted images obtained. Additional 3-D reformatted images obtained using a separate workstation. Comparison: None Visualized aortic arch is normal with normal widely patent branching right brachiocephalic, left common carotid, and left subclavian arteries. Normal CTA appearance to the common carotid, carotid bulb, internal carotid, and external carotid arteries bilaterally. Left and right vertebral arteries are also normal in CTA appearance. CT and CTA head reported separately. Visualized soft tissues demonstrates scattered small benign cervical lymph nodes bilaterally. No pathologic lymphadenopathy. Thyroid gland enhances homogeneously. Supra and infraglottic airway are patent. Lung apices demonstrates minimal subpleural cystic changes. Visualized osseous structures are intact. Impression: Normal CTA neck with contrast exam.
--- NOTE | 2022-06-10 08:47 | XRAY ---
Indication: Left-sided numbness. Stroke. Conventional contrast enhanced CTA head performed using 100 cc Isovue 370 contrast. 2-D sagittal and coronal reformatted images obtained. Additional 3-D reformatted images obtained using a separate workstation. Comparison: None Distal internal carotid arteries are bilaterally symmetric and widely patent. Normal carotid terminus with normal branching A1 and M1 segments bilaterally. More distal anterior cerebral and middle cerebral arteries are normal in CTA appearance bilaterally. Posterior circulation demonstrates normal CTA appearance to the basilar, left/right posterior cerebral, left/right superior cerebellar, and left/right anterior inferior cerebellar arteries. Venous sinuses/drainage unremarkable. Brain parenchyma negative for abnormal enhancing intra-or extra-axial mass. Impression: Normal CTA head with contrast exam.
--- NOTE | 2022-06-10 15:07 | XRAY ---
Indication: CVA. Normal CT head, normal CTA neck, and normal CTA head exams. Sagittal, coronal, and axial MRI brain performed using pre-and post T1, T2, FLAIR, diffusion, and ADC sequences. 22 cc Dotarem contrast used. Comparison: None Ventriculosulcal pattern appears symmetric. No acute intracranial hemorrhage, abnormal extra-axial fluid collection, or mass effect. Diffusion images are negative for restricted signal. Following gadolinium, there is incidental tiny left anterior parietal venous angioma. No other enhancing intra or extra-axial mass. Fourth ventricle is midline without hydrocephalus. 7/8 cranial nerve complex bilaterally symmetric. Normal flow-void signal within the major intracerebral circulation. Normal-appearing craniocervical junction and sella turcica. Near complete opacification both maxillary and lesser degree both ethmoid/sphenoid sinuses with fluid leveling. Impression: 1. Tiny left parietal venous angioma and pansinusitis. 2. Remaining MRI brain with contrast exam is negative.
[2022-06-10 15:21] VITALS: BP 139/84; PULSE 95; O2SAT 99
--- NOTE | 2022-06-10 17:18 | PCM.SSS ---
History of Present Illness - Chief Complaint Chief Complaint: left side body weakness for1-2 hours History of Present Illness: Mr.WESTERS DAVALOS is a 41 year old male. presents to our ED for evaluation of acute onset left-sided facial weakness left upper and lower extremity weakness accompanied by decreased sensation. Symptoms started approximately 20 minutes prior to arrival. Patient complains of a slight headache. No obvious expressive aphasia. We are concerned for possible stroke. Patient denies a history of the same. Symptoms are moderate severity. No specific worsening or improving factors. Patient voices no other complaints or concerns at this time. - Review of Systems Constitutional: No Fever, No Chills Eyes: No Symptoms Ears, Nose, & Throat: No Symptoms Respiratory: No Cough, No Short Of Breath Cardiac: No Chest Pain, No Edema, No Syncope Abdominal/Gastrointestinal: No Abdominal Pain, No Nausea, No Vomiting, No Diarrhea Genitourinary Symptoms: No Dysuria Musculoskeletal: No Back Pain, No Neck Pain Skin: No Rash Neurological: Focal Weakness (left side face, upper extrimity, lower extrimity), No Dizziness, No Sensory Changes Psychological: No Symptoms Endocrine: No Symptoms Hematologic/Lymphatic: No Symptoms Immunological/Allergic: No Symptoms Medications & Allergies Home Medications: Home Medication List Diclofenac Sodium 1 tab PO BID 06/09/22 [History Confirmed 06/09/22] Acetaminophen 325 mg [Tylenol 325 mg] 650 mg PO Q4H PRN PRN tablet [Rx] Allergies/Adverse Reactions: Allergies Allergy/AdvReac Type Severity Reaction Status Date / Time No Known Drug Allergies Allergy Verified 06/09/22 19:39 - Past Medical History Past Medical History: Yes Neurological History: No Pertinent History ENT History: No Pertinent History Cardiac History: No Pertinent History Respiratory History: No Pertinent History Endocrine Medical History: No Pertinent History Musculoskelatal History: No Pertinent History GI Medical History: No Pertinent History History: No Pertinent History Pyscho-Social History: No Pertinent History Male Reproductive Disorders: No Pertinent History Comment: KIDNEY STONES, chronic back pain, RA, cellulitis L leg - Past Surgical History Past Surgical History: No Neuro Surgical History: No Pertinent History Cardiac History: No Pertinent History Respiratory Surgery: No Pertinent History GI Surgical History: No Pertinent History Genitourinary Surgical Hx: No Pertinent History Musculskeletal Surgical Hx: No Pertinent History Male Surgical History: No Pertinent History - Social History Smoking Status: Current every day smoker How long have you smoked: 15yrs Exposure to second hand smoke: No Alcohol: Daily Drug Use: marijuana - Physical Exam Vital Signs: Vital Signs - 24 hr Temp Pulse Resp BP Pulse Ox 06/10/22 15:20 98.7 F 95 H 16 139/84 99 06/10/22 11:35 97.8 F 80 18 136/91 97 06/10/22 07:18 98.2 F 74 16 126/74 96 06/10/22 04:00 97.9 F 86 20 130/82 99 06/10/22 01:34 97.7 F 80 16 133/91 95 06/10/22 01:16 97 06/10/22 00:46 82 13 155/92 98 06/10/22 00:04 75 11 L 98 06/09/22 23:37 78 12 148/101 98 06/09/22 23:03 103 H 17 96 06/09/22 22:44 96 H 16 173/101 98 06/09/22 21:38 83 13 173/101 97 06/09/22 21:20 81 17 98 06/09/22 20:55 85 17 171/108 98 06/09/22 20:20 97 06/09/22 19:40 98.4 F 97 H 12 154/106 97 General Appearance: no apparent distress, alert Neurologic Exam: alert, oriented x 3, cooperative, normal mood/affect, nml cerebellar function, nml station & gait, sensation nml, motor weakness (left side) Eye Exam: PERRL/EOMI, eyes nml inspection Ears, Nose, Throat Exam: normal ENT inspection, TMs normal, pharynx normal, moist mucous membranes Neck Exam: normal inspection, non-tender, supple, full range of motion Respiratory Exam: normal breath sounds, lungs clear, No respiratory distress Cardiovascular Exam: regular rate/rhythm, normal heart sounds, normal peripheral pulses Gastrointestinal/Abdomen Exam: soft, normal bowel sounds, No tenderness, No mass Back Exam: normal inspection, normal range of motion, No CVA tenderness, No vertebral tenderness Extremity Exam: normal inspection, normal range of motion, pelvis stable Skin Exam: normal color, warm, dry, No rash Lymphatic Exam: No adenopathy Results - Labs Lab/Micro Results: Lab Results-Last 24 Hours 06/09/22 06/09/22 06/09/22 Range/Units 19:56 19:56 19:56 WBC 8.1 (4.0-10.5) x10^3/uL RBC 5.24 (4.1-5.6) x10^6/uL Hgb 16.1 (12.5-18.0) g/dL Hct 46.1 (42-50) % MCV 88.0 (78-100) fL MCH 30.7 (26-32) pg MCHC 34.9 (32-36) g/dL RDW 12.5 (11.5-14.0) % Plt Count 225 (150-450) x10^3/uL MPV 9.6 (7.5-11.0) fL Gran % 54.4 (36.0-66.0) % Immature Gran % (Auto) 0.6 H (0.00-0.4) % Nucleat RBC Rel Count 0.0 (0.00-0.1) % Eos # (Auto) 0.08 (0-0.5) x10^3/uL Immature Gran # (Auto) 0.05 H (0.00-0.03) x10^3u/L Absolute Lymphs (auto) 2.85 (1.0-4.6) x10^3/uL Absolute Monos (auto) 0.67 (0.0-1.3) x10^3/uL Absolute Nucleated RBC 0.00 (0.00-0.01) x10^3u/L Lymphocytes % 35.1 (24.0-44.0) % Monocytes % 8.3 (0.0-12.0) % Eosinophils % 1.0 (0.00-5.0) % Basophils % 0.6 (0.0-0.4) % Absolute Granulocytes 4.41 (1.4-6.9) x10^3/uL Basophils # 0.05 (0-0.4) x10^3/uL Sodium 146 H (137-145) mmol/L Potassium 3.5 (3.5-5.1) mmol/L Chloride 105 (98-107) mmol/L Carbon Dioxide 26 (22-30) mmol/L Anion Gap 18.9 H (5-15) MEQ/L BUN 20 (9-20) mg/dL Creatinine 1.00 (0.66-1.25) mg/dL Estimated GFR > 60.0 ML/MIN Glucose 90 (74-106) mg/dL Calcium 10.2 (8.4-10.2) mg/dL Total Bilirubin 0.50 (0.2-1.3) mg/dL AST 47 (17-59) U/L ALT 81 H (0-50) U/L Alkaline Phosphatase 102 (38-126) U/L Troponin I < 0.012 (0.000-0.034) ng/mL Serum Total Protein 8.2 (6.3-8.2) g/dL Albumin 5.1 H (3.5-5.0) g/dL Triglycerides (30-150) mg/dL Cholesterol (50-200) mg/dL LDL Cholesterol (30-100) mg/dL HDL Cholesterol (40-60) mg/dL Heart Disease Risk Ratio Urine Color (Yellow) Urine Appearance (Clear) Urine pH (4.6-8.0) Ur Specific [place] (1.005-1.030) Urine Protein (Negative) Urine Glucose (UA) (Negative) mg/dL Urine Ketones (Negative) Urine Blood (Negative) Urine Nitrite (Negative) Urine Bilirubin (Negative) Urine Urobilinogen (0.2) mg/dL Ur Leukocyte Esterase (Negative) U Hyaline Cast (Auto) (0-2) /LPF Urine Microscopic RBC (0-5) /HPF Urine Microscopic WBC (0-5) /HPF Ur Epithelial Cells (None Seen) /HPF Urine Bacteria (None Seen) /HPF Urine Culture Reflexed (NO) Influenza Type A Ag (NEGATIVE) Influenza Type B Ag (NEGATIVE) RSV (PCR) (NEGATIVE) SARS-CoV-2 (PCR) (NEGATIVE) 06/09/22 06/09/22 06/09/22 Range/Units 21:16 23:15 23:15 WBC (4.0-10.5) x10^3/uL RBC (4.1-5.6) x10^6/uL Hgb (12.5-18.0) g/dL Hct (42-50) % MCV (78-100) fL MCH (26-32) pg MCHC (32-36) g/dL RDW (11.5-14.0) % Plt Count (150-450) x10^3/uL MPV (7.5-11.0) fL Gran % (36.0-66.0) % Immature Gran % (Auto) (0.00-0.4) % Nucleat RBC Rel Count (0.00-0.1) % Eos # (Auto) (0-0.5) x10^3/uL Immature Gran # (Auto) (0.00-0.03) x10^3u/L Absolute Lymphs (auto) (1.0-4.6) x10^3/uL Absolute Monos (auto) (0.0-1.3) x10^3/uL Absolute Nucleated RBC (0.00-0.01) x10^3u/L Lymphocytes % (24.0-44.0) % Monocytes % (0.0-12.0) % Eosinophils % (0.00-5.0) % Basophils % (0.0-0.4) % Absolute Granulocytes (1.4-6.9) x10^3/uL Basophils # (0-0.4) x10^3/uL Sodium (137-145) mmol/L Potassium (3.5-5.1) mmol/L Chloride (98-107) mmol/L Carbon Dioxide (22-30) mmol/L Anion Gap (5-15) MEQ/L BUN (9-20) mg/dL Creatinine (0.66-1.25) mg/dL Estimated GFR ML/MIN Glucose (74-106) mg/dL Calcium (8.4-10.2) mg/dL Total Bilirubin (0.2-1.3) mg/dL AST (17-59) U/L ALT (0-50) U/L Alkaline Phosphatase (38-126) U/L Troponin I < 0.012 (0.000-0.034) ng/mL Serum Total Protein (6.3-8.2) g/dL Albumin (3.5-5.0) g/dL Triglycerides (30-150) mg/dL Cholesterol (50-200) mg/dL LDL Cholesterol (30-100) mg/dL HDL Cholesterol (40-60) mg/dL Heart Disease Risk Ratio Urine Color Yellow (Yellow) Urine Appearance Clear (Clear) Urine pH 6.0 (4.6-8.0) Ur Specific [place] 1.025 (1.005-1.030) Urine Protein Negative (Negative) Urine Glucose (UA) Negative (Negative) mg/dL Urine Ketones Negative (Negative) Urine Blood Negative (Negative) Urine Nitrite Negative (Negative) Urine Bilirubin Negative (Negative) Urine Urobilinogen 1.0 A (0.2) mg/dL Ur Leukocyte Esterase Negative (Negative) U Hyaline Cast (Auto) NONE SEEN (0-2) /LPF Urine Microscopic RBC 0-2 (0-5) /HPF Urine Microscopic WBC 0-2 (0-5) /HPF Ur Epithelial Cells None Seen (None Seen) /HPF Urine Bacteria None Seen (None Seen) /HPF Urine Culture Reflexed NO (NO) Influenza Type A Ag NEGATIVE (NEGATIVE) Influenza Type B Ag NEGATIVE (NEGATIVE) RSV (PCR) NEGATIVE (NEGATIVE) SARS-CoV-2 (PCR) NEGATIVE (NEGATIVE) 06/10/22 06/10/22 Range/Units 05:07 05:07 WBC (4.0-10.5) x10^3/uL RBC (4.1-5.6) x10^6/uL Hgb (12.5-18.0) g/dL Hct (42-50) % MCV (78-100) fL MCH (26-32) pg MCHC (32-36) g/dL RDW (11.5-14.0) % Plt Count (150-450) x10^3/uL MPV (7.5-11.0) fL Gran % (36.0-66.0) % Immature Gran % (Auto) (0.00-0.4) % Nucleat RBC Rel Count (0.00-0.1) % Eos # (Auto) (0-0.5) x10^3/uL Immature Gran # (Auto) (0.00-0.03) x10^3u/L Absolute Lymphs (auto) (1.0-4.6) x10^3/uL Absolute Monos (auto) (0.0-1.3) x10^3/uL Absolute Nucleated RBC (0.00-0.01) x10^3u/L Lymphocytes % (24.0-44.0) % Monocytes % (0.0-12.0) % Eosinophils % (0.00-5.0) % Basophils % (0.0-0.4) % Absolute Granulocytes (1.4-6.9) x10^3/uL Basophils # (0-0.4) x10^3/uL Sodium (137-145) mmol/L Potassium (3.5-5.1) mmol/L Chloride (98-107) mmol/L Carbon Dioxide (22-30) mmol/L Anion Gap (5-15) MEQ/L BUN (9-20) mg/dL Creatinine (0.66-1.25) mg/dL Estimated GFR ML/MIN Glucose (74-106) mg/dL Calcium (8.4-10.2) mg/dL Total Bilirubin (0.2-1.3) mg/dL AST (17-59) U/L ALT (0-50) U/L Alkaline Phosphatase (38-126) U/L Troponin I < 0.012 (0.000-0.034) ng/mL Serum Total Protein (6.3-8.2) g/dL Albumin (3.5-5.0) g/dL Triglycerides 207 H (30-150) mg/dL Cholesterol 181 (50-200) mg/dL LDL Cholesterol 116 H (30-100) mg/dL HDL Cholesterol 27 L (40-60) mg/dL Heart Disease Risk Ratio 6.7 Urine Color (Yellow) Urine Appearance (Clear) Urine pH (4.6-8.0) Ur Specific [place] (1.005-1.030) Urine Protein (Negative) Urine Glucose (UA) (Negative) mg/dL Urine Ketones (Negative) Urine Blood (Negative) Urine Nitrite (Negative) Urine Bilirubin (Negative) Urine Urobilinogen (0.2) mg/dL Ur Leukocyte Esterase (Negative) U Hyaline Cast (Auto) (0-2) /LPF Urine Microscopic RBC (0-5) /HPF Urine Microscopic WBC (0-5) /HPF Ur Epithelial Cells (None Seen) /HPF Urine Bacteria (None Seen) /HPF Urine Culture Reflexed (NO) Influenza Type A Ag (NEGATIVE) Influenza Type B Ag (NEGATIVE) RSV (PCR) (NEGATIVE) SARS-CoV-2 (PCR) (NEGATIVE) - Radiology Impressions Radiology Exams & Impressions: Radiology Procedures Category Date Time Status CT ANGIOGRAPHY NECK [CT] Stat Exams 06/09/22 20:21 Completed CTA HEAD W AND/OR WO CONTRAST [CT] Stat Exams 06/09/22 20:20 Completed HEAD WITHOUT CONTRAST [CT] Stat Exams 06/09/22 19:37 Completed MRI BRAIN W & W/O CONTRAST [MRI] Routine Exams 06/10/22 12:07 Completed MRI/MRI BRAIN W & W/O CONTRAST Indication: CVA. Normal CT head, normal CTA neck, and normal CTA head exams. Sagittal, coronal, and axial MRI brain performed using pre-and post T1, T2, FLAIR, diffusion, and ADC sequences. 22 cc Dotarem contrast used. Comparison: None Ventriculosulcal pattern appears symmetric. No acute intracranial hemorrhage, abnormal extra-axial fluid collection, or mass effect. Diffusion images are negative for restricted signal. Following gadolinium, there is incidental tiny left anterior parietal venous angioma. No other enhancing intra or extra-axial mass. Fourth ventricle is midline without hydrocephalus. 7/8 cranial nerve complex bilaterally symmetric. Normal flow-void signal within the major intracerebral circulation. Normal-appearing craniocervical junction and sella turcica. Near complete opacification both maxillary and lesser degree both ethmoid/sphenoid sinuses with fluid leveling. Impression: 1. Tiny left parietal venous angioma and pansinusitis. 2. Remaining MRI brain with contrast exam is negative. Assessment/Plan (1) CVA (cerebral vascular accident) Status: Acute Qualifiers: CVA mechanism: unspecified Qualified Code(s): I63.9 - Cerebral infarction, unspecified Assessment & Plan: Last Vital Signs Temp 98.7 F 06/10/22 15:20 Pulse 95 H 06/10/22 15:20 Resp 16 06/10/22 15:20 BP 139/84 06/10/22 15:20 Pulse Ox 99 06/10/22 15:20 Allergies No Known Drug Allergies Allergy (Verified 06/09/22 19:39) Intake & Output 06/10/22 06/11/22 11:59 11:59 Intake Total 910 240 Output Total 400 Balance 510 240 Weight 115.3 kg Orders 06/10/22 Discharge Routine Lab Tests 06/09/22 06/09/22 06/09/22 19:56 19:56 19:56 WBC 8.1 RBC 5.24 Hgb 16.1 Hct 46.1 MCV 88.0 MCH 30.7 MCHC 34.9 RDW 12.5 Plt Count 225 MPV 9.6 Gran % 54.4 Immature Gran % (Auto) 0.6 H Nucleat RBC Rel Count 0.0 Eos # (Auto) 0.08 Immature Gran # (Auto) 0.05 H Absolute Lymphs (auto) 2.85 Absolute Monos (auto) 0.67 Absolute Nucleated RBC 0.00 Lymphocytes % 35.1 Monocytes % 8.3 Eosinophils % 1.0 Basophils % 0.6 Absolute Granulocytes 4.41 Basophils # 0.05 Sodium 146 H Potassium 3.5 Chloride 105 Carbon Dioxide 26 Anion Gap 18.9 H BUN 20 Creatinine 1.00 Estimated GFR > 60.0 Glucose 90 Calcium 10.2 Total Bilirubin 0.50 AST 47 ALT 81 H Alkaline Phosphatase 102 Troponin I < 0.012 Serum Total Protein 8.2 Albumin 5.1 H Triglycerides Cholesterol LDL Cholesterol HDL Cholesterol Heart Disease Risk Ratio Urine Color Urine Appearance Urine pH Ur Specific [place] Urine Protein Urine Glucose (UA) Urine Ketones Urine Blood Urine Nitrite Urine Bilirubin Urine Urobilinogen Ur Leukocyte Esterase U Hyaline Cast (Auto) Urine Microscopic RBC Urine Microscopic WBC Ur Epithelial Cells Urine Bacteria Urine Culture Reflexed Influenza Type A Ag Influenza Type B Ag RSV (PCR) SARS-CoV-2 (PCR) 06/09/22 06/09/22 06/09/22 21:16 23:15 23:15 WBC RBC Hgb Hct MCV MCH MCHC RDW Plt Count MPV Gran % Immature Gran % (Auto) Nucleat RBC Rel Count Eos # (Auto) Immature Gran # (Auto) Absolute Lymphs (auto) Absolute Monos (auto) Absolute Nucleated RBC Lymphocytes % Monocytes % Eosinophils % Basophils % Absolute Granulocytes Basophils # Sodium Potassium Chloride Carbon Dioxide Anion Gap BUN Creatinine Estimated GFR Glucose Calcium Total Bilirubin AST ALT Alkaline Phosphatase Troponin I < 0.012 Serum Total Protein Albumin Triglycerides Cholesterol LDL Cholesterol HDL Cholesterol Heart Disease Risk Ratio Urine Color Yellow Urine Appearance Clear Urine pH 6.0 Ur Specific [place] 1.025 Urine Protein Negative Urine Glucose (UA) Negative Urine Ketones Negative Urine Blood Negative Urine Nitrite Negative Urine Bilirubin Negative Urine Urobilinogen 1.0 A Ur Leukocyte Esterase Negative U Hyaline Cast (Auto) NONE SEEN Urine Microscopic RBC 0-2 Urine Microscopic WBC 0-2 Ur Epithelial Cells None Seen Urine Bacteria None Seen Urine Culture Reflexed NO Influenza Type A Ag NEGATIVE Influenza Type B Ag NEGATIVE RSV (PCR) NEGATIVE SARS-CoV-2 (PCR) NEGATIVE 06/10/22 06/10/22 05:07 05:07 WBC RBC Hgb Hct MCV MCH MCHC RDW Plt Count MPV Gran % Immature Gran % (Auto) Nucleat RBC Rel Count Eos # (Auto) Immature Gran # (Auto) Absolute Lymphs (auto) Absolute Monos (auto) Absolute Nucleated RBC Lymphocytes % Monocytes % Eosinophils % Basophils % Absolute Granulocytes Basophils # Sodium Potassium Chloride Carbon Dioxide Anion Gap BUN Creatinine Estimated GFR Glucose Calcium Total Bilirubin AST ALT Alkaline Phosphatase Troponin I < 0.012 Serum Total Protein Albumin Triglycerides 207 H Cholesterol 181 LDL Cholesterol 116 H HDL Cholesterol 27 L Heart Disease Risk Ratio 6.7 Urine Color Urine Appearance Urine pH Ur Specific [place] Urine Protein Urine Glucose (UA) Urine Ketones Urine Blood Urine Nitrite Urine Bilirubin Urine Urobilinogen Ur Leukocyte Esterase U Hyaline Cast (Auto) Urine Microscopic RBC Urine Microscopic WBC Ur Epithelial Cells Urine Bacteria Urine Culture Reflexed Influenza Type A Ag Influenza Type B Ag RSV (PCR) SARS-CoV-2 (PCR) Code(s): I63.9 - CEREBRAL INFARCTION, UNSPECIFIED (2) Acute left-sided muscle weakness Status: Resolved Code(s): M62.81 - MUSCLE WEAKNESS (GENERALIZED) (3) Weakness of left side of body Status: Resolved Code(s): R53.1 - WEAKNESS Hospital Summary - Hospital Course Hospital Course: Chief Complaint Diagnosis weakness Allergies Allergy/AdvReac Type Severity Reaction Status Date / Time No Known Drug Allergies Allergy Verified 06/09/22 19:39 Vital Signs (Last 24 hours) Temp Pulse Resp BP Pulse Ox 06/10/22 15:20 98.7 F 95 H 16 139/84 99 06/10/22 11:35 97.8 F 80 18 136/91 97 06/10/22 07:18 98.2 F 74 16 126/74 96 06/10/22 04:00 97.9 F 86 20 130/82 99 06/10/22 01:34 97.7 F 80 16 133/91 95 06/10/22 01:16 97 06/10/22 00:46 82 13 155/92 98 06/10/22 00:04 75 11 L 98 06/09/22 23:37 78 12 148/101 98 06/09/22 23:03 103 H 17 96 06/09/22 22:44 96 H 16 173/101 98 06/09/22 21:38 83 13 173/101 97 06/09/22 21:20 81 17 98 06/09/22 20:55 85 17 171/108 98 06/09/22 20:20 97 06/09/22 19:40 98.4 F 97 H 12 154/106 97 Home Medications Medication Instructions Recorded Confirmed Last Taken Type Diclofenac Sodium 1 tab PO BID 06/09/22 06/09/22 Unknown History Acetaminophen 325 mg [Tylenol 650 mg PO Q4H PRN PRN tablet 06/10/22 Unknown Rx 325 mg] Current Medications Discontinued Medications Generic Name Dose Route Start Last Admin Trade Name Freq PRN Reason Stop Dose Admin Acetaminophen 650 mg 06/10/22 01:15 Acetaminophen 325 Mg Tablet PO 07/10/22 01:14 Q4H PRN PRN PAIN AND/OR FEVER Al Hydrox/Mg Hydrox/Simethicone 30 ml 06/10/22 01:15 Mag Hydrox/Al Hydrox/Simeth 30 Ml Udcup PO 07/10/22 01:14 Q4H PRN PRN INDIGESTION Aspirin 324 mg 06/09/22 23:06 06/10/22 00:40 Aspirin 81 Mg Tab.Chew PO 06/09/22 23:07 324 mg STAT ONE Administration Aspirin Confirm 06/10/22 00:38 Aspirin 81 Mg Tab.Chew Administered 06/10/22 00:39 Dose 324 mg .ROUTE .STK-MED ONE Sodium Chloride 1,000 mls @ 75 mls/hr 06/09/22 23:15 06/10/22 00:40 Sodium Chloride 0.9% 1000 Ml IV 07/09/22 23:14 75 mls/hr .[id number] LIZZY Administration Magnesium Hydroxide 30 - 60 ml 06/10/22 01:15 Magnesium Hydroxide 30 Ml Udcup PO 07/10/22 01:14 QDP PRN CONSTIPATION Senna/Docusate Sodium 2 udtab 06/10/22 01:15 Senna/Docusate Sodium 1 Udtab Tablet PO 07/10/22 01:14 BID PRN PRN CONSTIPATION Intake & Output (Last 24 hours) 06/08/22 06/09/22 06/10/22 06/11/22 11:59 11:59 11:59 11:59 Intake Total 910 240 Output Total 400 Balance 510 240 Weight 115.3 kg Laboratory Results (Last 24 hours) 06/10/22 06/10/22 06/09/22 05:07 05:07 23:15 WBC RBC Hgb Hct MCV MCH MCHC RDW Plt Count MPV Gran % Immature Gran % (Auto) Nucleat RBC Rel Count Eos # (Auto) Immature Gran # (Auto) Absolute Lymphs (auto) Absolute Monos (auto) Absolute Nucleated RBC Lymphocytes % Monocytes % Eosinophils % Basophils % Absolute Granulocytes Basophils # Sodium Potassium Chloride Carbon Dioxide Anion Gap BUN Creatinine Estimated GFR Glucose Calcium Total Bilirubin AST ALT Alkaline Phosphatase Troponin I < 0.012 Serum Total Protein Albumin Triglycerides 207 H Cholesterol 181 LDL Cholesterol 116 H HDL Cholesterol 27 L Heart Disease Risk Ratio 6.7 Urine Color Urine Appearance Urine pH Ur Specific [place] Urine Protein Urine Glucose (UA) Urine Ketones Urine Blood Urine Nitrite Urine Bilirubin Urine Urobilinogen Ur Leukocyte Esterase U Hyaline Cast (Auto) Urine Microscopic RBC Urine Microscopic WBC Ur Epithelial Cells Urine Bacteria Urine Culture Reflexed Influenza Type A Ag NEGATIVE Influenza Type B Ag NEGATIVE RSV (PCR) NEGATIVE SARS-CoV-2 (PCR) NEGATIVE 06/09/22 06/09/22 06/09/22 23:15 21:16 19:56 WBC RBC Hgb Hct MCV MCH MCHC RDW Plt Count MPV Gran % Immature Gran % (Auto) Nucleat RBC Rel Count Eos # (Auto) Immature Gran # (Auto) Absolute Lymphs (auto) Absolute Monos (auto) Absolute Nucleated RBC Lymphocytes % Monocytes % Eosinophils % Basophils % Absolute Granulocytes Basophils # Sodium Potassium Chloride Carbon Dioxide Anion Gap BUN Creatinine Estimated GFR Glucose Calcium Total Bilirubin AST ALT Alkaline Phosphatase Troponin I < 0.012 < 0.012 Serum Total Protein Albumin Triglycerides Cholesterol LDL Cholesterol HDL Cholesterol Heart Disease Risk Ratio Urine Color Yellow Urine Appearance Clear Urine pH 6.0 Ur Specific [place] 1.025 Urine Protein Negative Urine Glucose (UA) Negative Urine Ketones Negative Urine Blood Negative Urine Nitrite Negative Urine Bilirubin Negative Urine Urobilinogen 1.0 A Ur Leukocyte Esterase Negative U Hyaline Cast (Auto) NONE SEEN Urine Microscopic RBC 0-2 Urine Microscopic WBC 0-2 Ur Epithelial Cells None Seen Urine Bacteria None Seen Urine Culture Reflexed NO Influenza Type A Ag Influenza Type B Ag RSV (PCR) SARS-CoV-2 (PCR) 06/09/22 06/09/22 19:56 19:56 WBC 8.1 RBC 5.24 Hgb 16.1 Hct 46.1 MCV 88.0 MCH 30.7 MCHC 34.9 RDW 12.5 Plt Count 225 MPV 9.6 Gran % 54.4 Immature Gran % (Auto) 0.6 H Nucleat RBC Rel Count 0.0 Eos # (Auto) 0.08 Immature Gran # (Auto) 0.05 H Absolute Lymphs (auto) 2.85 Absolute Monos (auto) 0.67 Absolute Nucleated RBC 0.00 Lymphocytes % 35.1 Monocytes % 8.3 Eosinophils % 1.0 Basophils % 0.6 Absolute Granulocytes 4.41 Basophils # 0.05 Sodium 146 H Potassium 3.5 Chloride 105 Carbon Dioxide 26 Anion Gap 18.9 H BUN 20 Creatinine 1.00 Estimated GFR > 60.0 Glucose 90 Calcium 10.2 Total Bilirubin 0.50 AST 47 ALT 81 H Alkaline Phosphatase 102 Troponin I Serum Total Protein 8.2 Albumin 5.1 H Triglycerides Cholesterol LDL Cholesterol HDL Cholesterol Heart Disease Risk Ratio Urine Color Urine Appearance Urine pH Ur Specific [place] Urine Protein Urine Glucose (UA) Urine Ketones Urine Blood Urine Nitrite Urine Bilirubin Urine Urobilinogen Ur Leukocyte Esterase U Hyaline Cast (Auto) Urine Microscopic RBC Urine Microscopic WBC Ur Epithelial Cells Urine Bacteria Urine Culture Reflexed Influenza Type A Ag Influenza Type B Ag RSV (PCR) SARS-CoV-2 (PCR) Orders (Last 24 hours) Category Date Time Status Bedrest with BRP/BSC ROUTINE Activity 06/10/22 01:15 Completed Staff Climate Scientist STAT Care 06/09/22 19:39 Completed Code Status Order ROUTINE Care 06/10/22 01:15 Completed EKG-ER Only STAT Care 06/09/22 19:38 Completed IV Care Q6H Care 06/10/22 01:15 Completed IV Insertion STAT Care 06/09/22 19:38 Completed Implement Chest Pain Pathway ROUTINE Care 06/10/22 01:15 Completed Neuro Checks Q4H Care 06/10/22 08:[address] in Observation ROUTINE Care 06/10/22 01:15 Completed Pulse Oximetry (ED) STAT Care 06/09/22 19:38 Completed Galileo Deepe, Apply ROUTINE Care 06/10/22 01:15 Completed Telemetry q6h Care 06/10/22 01:15 Completed Weight,Daily 0600 Care 06/10/22 01:15 Completed House Regular Diet Diet 06/10/22 Breakfast Completed Discharge Routine Discharge 06/10/[address] ANGIOGRAPHY NECK [CT] Stat Exams 06/09/22 20:21 Completed CTA HEAD W AND/OR WO CONTRAST [CT] Stat Exams 06/09/22 20:20 Completed HEAD WITHOUT CONTRAST [CT] Stat Exams 06/09/22 19:37 Completed MRI BRAIN W & W/O CONTRAST [MRI] Routine Exams 06/10/22 12:07 Completed CBC W DIFF Stat Lab 06/09/22 19:56 Completed CMP Stat Lab 06/09/22 19:56 Completed COVID/FLU/RSV Panel Stat Lab 06/09/22 23:15 Completed LIPID PROFILE AM.LAB Lab 06/10/22 05:07 Completed TROPONIN Q4H Lab 06/09/22 19:56 Completed TROPONIN Q4H Lab 06/09/22 23:15 Completed TROPONIN Q4H Lab 06/10/22 05:07 Completed UA W/RFX UR CULTURE Stat Lab 06/09/22 21:16 Completed Acetaminophen 325 mg [Tylenol 325 mg] Med 06/10/22 01:15 Discontinued 650 mg PO Q4H PRN PRN Aspirin 81 gm Chew [Baby Aspirin 81 mg Chew] Med 06/10/22 00:38 Discontinued 324 mg .ROUTE .STK-MED ONE Aspirin 81 gm Chew [Baby Aspirin 81 mg Chew] Med 06/09/22 23:06 Discontinued 324 mg PO STAT ONE Mag Hydrox/Al Hydrox/Simeth [Maalox Es 30 ml Unit Med 06/10/22 01:15 D iscontinued Dose] 30 ml PO Q4H PRN PRN Magnesium Hydroxide 30 ml [Milk of Magnesia 30 ml Med 06/10/22 01:15 Discontinued ] 30 - 60 ml PO QDP PRN NaCl 0.9% 1000 ml [Sodium Chloride 0.9% 1000 ML] 1,000 Med 06/09/22 23:15 Discontinued ml IV 75 mls/hr Senna/Docusate Sodium Tab [Senokot-S Tablet] Med 06/10/22 01:15 Discontinued 2 udtab PO BID PRN PRN EKG Q8HX2,QAMX3,PRN RT 06/10/22 01:15 Completed EKG ROUTINE RT 06/10/22 05:00 Completed EKG ROUTINE RT 06/11/22 05:00 Completed EKG ROUTINE RT 06/12/22 05:00 Completed Pulse Oximetry Q4H RT 06/10/22 01:15 Completed Patient Care Notes (Last 24 hours) 06/10/22 16:19 Nursing Note by Dianne Colbert patient taken down in wheelchair per nursing staff without incident. escorted home by significant other. Initialized on 06/10/22 16:19 - END OF NOTE 06/10/22 12:05 (created 06/10/22 12:10) Nursing Note by Eloise Friedman is here rounding on patient. Initialized on 06/10/22 12:10 - END OF NOTE 06/10/22 03:56 Nursing Admission Note by Nicky Groves 0100 Received pt to room 103 via stretcher. pt aao x 4, resp even and unlabored on ra. pt denies pain, sob, dizziness at this time. sig other at bs. no facial droop noted. pt reports numbness in bilateral upper extremities. decreased strength noted in left arm. pt has limited left lower leg strength. pt was able to walk from the stretcher to the bed with stand by assistance. Pt was able to take sips of water, no coughing noted. No drooling noted. pt reports left lower extremity decreased sensation. updated on plan of care and disease process. white board updated. call light within reach. will cont to monitor. Initialized on 06/10/22 03:56 - END OF NOTE - Vitals & Intake/Output Vital Signs: Vital Signs Temperature 98.7 F 06/10/22 15:20 Pulse Rate 95 H 06/10/22 15:20 Respiratory Rate 16 06/10/22 15:20 Blood Pressure 139/84 06/10/22 15:20 O2 Sat by Pulse Oximetry 99 06/10/22 15:20 Intake & Output: Intake & Output 06/08/22 06/09/22 06/10/22 06/11/22 11:59 11:59 11:59 11:59 Intake Total 910 240 Output Total 400 Balance 510 240 Weight 115.3 kg - Lab Result Diagrams: 06/09/22 19:56 06/09/22 19:56 Lab Results-Last 24 Hrs: Lab Results-Last 24 Hours 06/09/22 06/09/22 06/09/22 Range/Units 19:56 19:56 19:56 WBC 8.1 (4.0-10.5) x10^3/uL RBC 5.24 (4.1-5.6) x10^6/uL Hgb 16.1 (12.5-18.0) g/dL Hct 46.1 (42-50) % MCV 88.0 (78-100) fL MCH 30.7 (26-32) pg MCHC 34.9 (32-36) g/dL RDW 12.5 (11.5-14.0) % Plt Count 225 (150-450) x10^3/uL MPV 9.6 (7.5-11.0) fL Gran % 54.4 (36.0-66.0) % Immature Gran % (Auto) 0.6 H (0.00-0.4) % Nucleat RBC Rel Count 0.0 (0.00-0.1) % Eos # (Auto) 0.08 (0-0.5) x10^3/uL Immature Gran # (Auto) 0.05 H (0.00-0.03) x10^3u/L Absolute Lymphs (auto) 2.85 (1.0-4.6) x10^3/uL Absolute Monos (auto) 0.67 (0.0-1.3) x10^3/uL Absolute Nucleated RBC 0.00 (0.00-0.01) x10^3u/L Lymphocytes % 35.1 (24.0-44.0) % Monocytes % 8.3 (0.0-12.0) % Eosinophils % 1.0 (0.00-5.0) % Basophils % 0.6 (0.0-0.4) % Absolute Granulocytes 4.41 (1.4-6.9) x10^3/uL Basophils # 0.05 (0-0.4) x10^3/uL Sodium 146 H (137-145) mmol/L Potassium 3.5 (3.5-5.1) mmol/L Chloride 105 (98-107) mmol/L Carbon Dioxide 26 (22-30) mmol/L Anion Gap 18.9 H (5-15) MEQ/L BUN 20 (9-20) mg/dL Creatinine 1.00 (0.66-1.25) mg/dL Estimated GFR > 60.0 ML/MIN Glucose 90 (74-106) mg/dL Calcium 10.2 (8.4-10.2) mg/dL Total Bilirubin 0.50 (0.2-1.3) mg/dL AST 47 (17-59) U/L ALT 81 H (0-50) U/L Alkaline Phosphatase 102 (38-126) U/L Troponin I < 0.012 (0.000-0.034) ng/mL Serum Total Protein 8.2 (6.3-8.2) g/dL Albumin 5.1 H (3.5-5.0) g/dL Triglycerides (30-150) mg/dL Cholesterol (50-200) mg/dL LDL Cholesterol (30-100) mg/dL HDL Cholesterol (40-60) mg/dL Heart Disease Risk Ratio Urine Color (Yellow) Urine Appearance (Clear) Urine pH (4.6-8.0) Ur Specific [place] (1.005-1.030) Urine Protein (Negative) Urine Glucose (UA) (Negative) mg/dL Urine Ketones (Negative) Urine Blood (Negative) Urine Nitrite (Negative) Urine Bilirubin (Negative) Urine Urobilinogen (0.2) mg/dL Ur Leukocyte Esterase (Negative) U Hyaline Cast (Auto) (0-2) /LPF Urine Microscopic RBC (0-5) /HPF Urine Microscopic WBC (0-5) /HPF Ur Epithelial Cells (None Seen) /HPF Urine Bacteria (None Seen) /HPF Urine Culture Reflexed (NO) Influenza Type A Ag (NEGATIVE) Influenza Type B Ag (NEGATIVE) RSV (PCR) (NEGATIVE) SARS-CoV-2 (PCR) (NEGATIVE) 06/09/22 06/09/22 06/09/22 Range/Units 21:16 23:15 23:15 WBC (4.0-10.5) x10^3/uL RBC (4.1-5.6) x10^6/uL Hgb (12.5-18.0) g/dL Hct (42-50) % MCV (78-100) fL MCH (26-32) pg MCHC (32-36) g/dL RDW (11.5-14.0) % Plt Count (150-450) x10^3/uL MPV (7.5-11.0) fL Gran % (36.0-66.0) % Immature Gran % (Auto) (0.00-0.4) % Nucleat RBC Rel Count (0.00-0.1) % Eos # (Auto) (0-0.5) x10^3/uL Immature Gran # (Auto) (0.00-0.03) x10^3u/L Absolute Lymphs (auto) (1.0-4.6) x10^3/uL Absolute Monos (auto) (0.0-1.3) x10^3/uL Absolute Nucleated RBC (0.00-0.01) x10^3u/L Lymphocytes % (24.0-44.0) % Monocytes % (0.0-12.0) % Eosinophils % (0.00-5.0) % Basophils % (0.0-0.4) % Absolute Granulocytes (1.4-6.9) x10^3/uL Basophils # (0-0.4) x10^3/uL Sodium (137-145) mmol/L Potassium (3.5-5.1) mmol/L Chloride (98-107) mmol/L Carbon Dioxide (22-30) mmol/L Anion Gap (5-15) MEQ/L BUN (9-20) mg/dL Creatinine (0.66-1.25) mg/dL Estimated GFR ML/MIN Glucose (74-106) mg/dL Calcium (8.4-10.2) mg/dL Total Bilirubin (0.2-1.3) mg/dL AST (17-59) U/L ALT (0-50) U/L Alkaline Phosphatase (38-126) U/L Troponin I < 0.012 (0.000-0.034) ng/mL Serum Total Protein (6.3-8.2) g/dL Albumin (3.5-5.0) g/dL Triglycerides (30-150) mg/dL Cholesterol (50-200) mg/dL LDL Cholesterol (30-100) mg/dL HDL Cholesterol (40-60) mg/dL Heart Disease Risk Ratio Urine Color Yellow (Yellow) Urine Appearance Clear (Clear) Urine pH 6.0 (4.6-8.0) Ur Specific [place] 1.025 (1.005-1.030) Urine Protein Negative (Negative) Urine Glucose (UA) Negative (Negative) mg/dL Urine Ketones Negative (Negative) Urine Blood Negative (Negative) Urine Nitrite Negative (Negative) Urine Bilirubin Negative (Negative) Urine Urobilinogen 1.0 A (0.2) mg/dL Ur Leukocyte Esterase Negative (Negative) U Hyaline Cast (Auto) NONE SEEN (0-2) /LPF Urine Microscopic RBC 0-2 (0-5) /HPF Urine Microscopic WBC 0-2 (0-5) /HPF Ur Epithelial Cells None Seen (None Seen) /HPF Urine Bacteria None Seen (None Seen) /HPF Urine Culture Reflexed NO (NO) Influenza Type A Ag NEGATIVE (NEGATIVE) Influenza Type B Ag NEGATIVE (NEGATIVE) RSV (PCR) NEGATIVE (NEGATIVE) SARS-CoV-2 (PCR) NEGATIVE (NEGATIVE) 06/10/22 06/10/22 Range/Units 05:07 05:07 WBC (4.0-10.5) x10^3/uL RBC (4.1-5.6) x10^6/uL Hgb (12.5-18.0) g/dL Hct (42-50) % MCV (78-100) fL MCH (26-32) pg MCHC (32-36) g/dL RDW (11.5-14.0) % Plt Count (150-450) x10^3/uL MPV (7.5-11.0) fL Gran % (36.0-66.0) % Immature Gran % (Auto) (0.00-0.4) % Nucleat RBC Rel Count (0.00-0.1) % Eos # (Auto) (0-0.5) x10^3/uL Immature Gran # (Auto) (0.00-0.03) x10^3u/L Absolute Lymphs (auto) (1.0-4.6) x10^3/uL Absolute Monos (auto) (0.0-1.3) x10^3/uL Absolute Nucleated RBC (0.00-0.01) x10^3u/L Lymphocytes % (24.0-44.0) % Monocytes % (0.0-12.0) % Eosinophils % (0.00-5.0) % Basophils % (0.0-0.4) % Absolute Granulocytes (1.4-6.9) x10^3/uL Basophils # (0-0.4) x10^3/uL Sodium (137-145) mmol/L Potassium (3.5-5.1) mmol/L Chloride (98-107) mmol/L Carbon Dioxide (22-30) mmol/L Anion Gap (5-15) MEQ/L BUN (9-20) mg/dL Creatinine (0.66-1.25) mg/dL Estimated GFR ML/MIN Glucose (74-106) mg/dL Calcium (8.4-10.2) mg/dL Total Bilirubin (0.2-1.3) mg/dL AST (17-59) U/L ALT (0-50) U/L Alkaline Phosphatase (38-126) U/L Troponin I < 0.012 (0.000-0.034) ng/mL Serum Total Protein (6.3-8.2) g/dL Albumin (3.5-5.0) g/dL Triglycerides 207 H (30-150) mg/dL Cholesterol 181 (50-200) mg/dL LDL Cholesterol 116 H (30-100) mg/dL HDL Cholesterol 27 L (40-60) mg/dL Heart Disease Risk Ratio 6.7 Urine Color (Yellow) Urine Appearance (Clear) Urine pH (4.6-8.0) Ur Specific [place] (1.005-1.030) Urine Protein (Negative) Urine Glucose (UA) (Negative) mg/dL Urine Ketones (Negative) Urine Blood (Negative) Urine Nitrite (Negative) Urine Bilirubin (Negative) Urine Urobilinogen (0.2) mg/dL Ur Leukocyte Esterase (Negative) U Hyaline Cast (Auto) (0-2) /LPF Urine Microscopic RBC (0-5) /HPF Urine Microscopic WBC (0-5) /HPF Ur Epithelial Cells (None Seen) /HPF Urine Bacteria (None Seen) /HPF Urine Culture Reflexed (NO) Influenza Type A Ag (NEGATIVE) Influenza Type B Ag (NEGATIVE) RSV (PCR) (NEGATIVE) SARS-CoV-2 (PCR) (NEGATIVE) - Radiology Exams Ordered Rad Exams-Entire Visit: Radiology Procedures Category Date Time Status CT ANGIOGRAPHY NECK [CT] Stat Exams 06/09/22 20:21 Completed CTA HEAD W AND/OR WO CONTRAST [CT] Stat Exams 06/09/22 20:20 Completed HEAD WITHOUT CONTRAST [CT] Stat Exams 06/09/22 19:37 Completed MRI BRAIN W & W/O CONTRAST [MRI] Routine Exams 06/10/22 12:07 Completed - Procedures and Test Procedures and Tests throughout Hospitalization: Therapy Orders & Screens 06/10/22 01:15 EKG [id number],QAMX3,PRN Comment: 06/10/22 05:00 EKG ROUTINE Comment: Diagnosis: weakness 06/11/22 05:00 EKG ROUTINE Comment: Diagnosis: weakness 06/12/22 05:00 EKG ROUTINE Comment: Diagnosis: weakness - Discharge Discharge Date: 06/10/22 Disposition: Home, Self-Care Condition: Stable Prescriptions: New Acetaminophen 325 mg [Tylenol 325 mg] 650 mg PO Q4H PRN PRN tablet PRN Reason: Pain And/Or Fever Continue Diclofenac Sodium 1 tab PO BID Instructions: Stroke (DC) Follow up with: REBEKAH JOSE MD [Primary Care Provider] - 06/18/22 3:30 pm (at [facility] ) Forms: Discharge Instructions, Work/School Release Form
== END 2022-06-10 16:17 | disposition home or self-care (01) ==
LOC: ED 19:37 → MED SURG 06-10 01:11
PROVIDERS: ADMIT Family Medicine; ATTEND General Practice
DX: I63.9 Cerebral infarction, unspecified (principal); M62.81 Muscle weakness (generalized); I10 Essential (primary) hypertension; Z79.899 Other long term (current) drug therapy; Z20.828 Contact with and (suspected) exposure to other viral communicable diseases; Z72.0 Tobacco use
CPT/HCPCS: 0241U; 36000; 36415; 70450; 70496; 70498; 70553; 80053; 80061; 81001; 83721; 84484; 85025; 93005; 93041; 94760; 99285; A9270-GY

== ENCOUNTER 2024-08-04 17:18 | Emergency (ER) | payer BC, OTHER ==
[2024-08-04 19:35] VITALS: RESP 18; TEMP 97.7
[2024-08-04 20:06] VITALS: O2SAT 99
[2024-08-04] MEDS ORDERED: Vibramycin 100 MG ONE (20:22)
[2024-08-04] MEDS: Vibramycin 100 MG PO ONE (20:24)
--- NOTE | 2024-08-04 20:24 | ERPHSYRPT ---
- History of Present Illness Time Seen by Provider: 08/04/24 20:16 Source: patient Exam Limitations: no limitations Patient Subjective Stated Complaint: pt states that he went to [facility] on wednesday and was put on bactrim for cellulitis. pt states that the redness is g etting worse. Triage Nursing Assessment: pt ambulated into the er; pt is axo x4; c/o RLE redness; pt states 6/10 pain to RLE; redness and swelling present to RLE; strong rt pedal pulse; no respiratory distress present; hypertensive Physician History: Patient had a 4x4 post fall on his RLE last week and has had worsening redness. Started Bactrim 3 days ago and redness worsening. No active drainage. No fevers. Timing/Duration: week(s) (1) Quality: painful Severity: moderate Location: extremities (RLE) Possible Causes: other (4x4 post fell on RLE) Associated Symptoms: change in skin texture, No blisters, No fever Allergies/Adverse Reactions: No Known Drug Allergies Allergy (Verified 08/04/24 19:21) Home Medications: Diclofenac Sodium 1 tab PO BID 06/09/22 [History] Hx Tetanus, Diphtheria Vaccination/Date Given: Yes Hx Influenza Vaccination/Date Given: No Hx Pneumococcal Vaccination/Date Given: No Travel Risk - International Travel Have you traveled outside of the country in past 3 weeks: No - Emerging Infectious Disease Are you exhibiting symptoms associated with any current EIDs: No - Review of Systems All Other Systems: Reviewed and Negative - Past Medical History Pertinent Past Medical History: Yes Neurological History: No Pertinent History ENT History: No Pertinent History Cardiac History: Hypertension Respiratory History: No Pertinent History Endocrine Medical History: No Pertinent History Musculoskeletal History: Other GI Medical History: No Pertinent History History: Other Psycho-Social History: No Pertinent History Male Reproductive Disorders: No Pertinent History Other Medical History: KIDNEY STONES, chronic back pain, RA, cellulitis L leg - Past Surgical History Past Surgical History: No Neuro Surgical History: No Pertinent History Cardiac: No Pertinent History Respiratory: No Pertinent History Gastrointestinal: No Pertinent History Genitourinary: No Pertinent History Musculoskeletal: No Pertinent History Male Surgical History: No Pertinent History - Social History Smoking Status: Former smoker How long have you smoked: 15yrs Exposure to second hand smoke: No Drug Use: marijuana - Social Determinants of Health Will the patient participate in the screening: Yes Do you worry about a steady place to live?: No Do you have any problems with any of the following?: No known problems In the past 12 months,have you had to go without utilities?: No Transportation Issues: No Has anyone in your support network made you feel unsafe?: No Have you or anyone in your house had to go w/o enough food: No - Nursing Vital Signs Nursing Vital Signs: Initial Vital Signs Temperature 97.7 F 08/04/24 19:23 Pulse Rate 71 08/04/24 19:23 Respiratory Rate 18 08/04/24 19:23 Blood Pressure 155/85 08/04/24 19:23 O2 Sat by Pulse Oximetry 100 08/04/24 19:23 Pain Scale Pain Intensity 2 - Physical Exam Cardiovascular Exam: normal peripheral pulses, capillary refill <2 sec Skin Exam: warm, other (erythema RLE just below knee to ankle) SpO2 Interpretation: normal SpO2: 99 O2 Delivery: Room Air - Course Nursing assessment & vital signs reviewed: Yes - Progress Progress: unchanged Progress Note: History and physical exam concerning for worsening cellulitis of the right lower extremity. Dorsalis pedis and tibialis posterior pulses 2+ on exam today. Area of erythema outlined with sterile marker. No fevers on arrival today. Patient has been on Bactrim for 3 days with worsening symptoms. I will switch the patient over to doxycycline. If the cellulitis expands past the border after 2 days of Doxy recommend coming back to the emergency room for IV antibiotics. Counseled pt/family regarding: diagnosis, need for follow-up Medical Desision Making - Diagnostic Testing Diagnostic test were ordered, analyzed, and reviewed by me: No - Risk of complications The pt has a mod risk of morbidity or mortality based on: Need for prescription drug management - Departure Departure Disposition: Home Clinical Impression: Cellulitis of right lower extremity Condition: Good Critical Care Time: No Referrals: REBEKAH JOSE MD [Primary Care Provider, INTERNAL MEDICINE] - Follow up/PCP as directed Instructions: Cellulitis (skin infection) in adults - Discharge instructions Prescriptions: Doxycycline Hyclate 100 mg PO BID 10 Days #20 tablet
[2024-08-04 20:28] VITALS: BP 144/85; PULSE 74
== END 2024-08-04 20:42 | disposition home or self-care (01) ==
LOC: ED 17:18
DX: L03.115 Cellulitis of right lower limb (principal); Z79.899 Other long term (current) drug therapy
CPT/HCPCS: 99281; 99283; A9270-GY